=== PATIENT | female | born 1935 | race American Indian/Alaskan Native ===

== ENCOUNTER 2018-07-29 13:05 | Outpatient (CLI) | payer OTHER ==
[~2018-07-29 13:05] MED LIST: AVAPRO150 MG PO; METROPOLOL PO
== END 2018-07-29 13:59 | disposition home or self-care (01) ==
LOC: SONOGRAMA 13:05 → MAMO-SONO 13:15 → SONOGRAMA 13:59
DX: D44.0 Neoplasm of uncertain behavior of thyroid gland (principal); E04.1 Nontoxic single thyroid nodule

== ENCOUNTER 2018-08-18 09:55 | Outpatient (CLI) | payer OTHER | END 2018-08-18 09:57 | disposition home or self-care (01) | LOC: SONOGRAMA 09:55 | DX: D44.0 Neoplasm of uncertain behavior of thyroid gland (principal) ==

== ENCOUNTER 2019-07-15 15:03 | Outpatient (CLI) | payer OTHER | END 2019-07-15 15:16 | disposition home or self-care (01) | LOC: NUCLEAR 15:03 | DX: M81.0 Age-related osteoporosis without current pathological fracture (principal) ==